=== PATIENT | male | born 1950 | race Asian ===

== ENCOUNTER 2018-11-13 22:57 | Emergency (ER) | payer OTHER ==
[~2018-11-13] VITALS: Ht 193 cm; Wt 72.1 kg
[2018-11-13 22:57] VITALS: BP 191/98; TEMP 97.5
[~2018-11-13 22:57] MED LIST: ACCU-CHEK; ACCU-CHEK ACTIVE STR VI; ALUMSUS6 PO; AMANTADINE100 M1 PO; AMANTADINE100 MG PO; AMLO2.5T PO; ATIVAN2 MG PO; BENADRYL 50M50 MG/ML IM; BENZTROPINE0.5 MG PO; BISAC-EVAC10 MG RE; BISACODYL5 M1 PO; BUSP15TAB2 PO; BUSPIRONE10 MG PO; CARV25TA PO; DECUBI-VITE PO; DEPAKENE250 MG/5 M PO; DIPH12.553 PO; DIPH50IN IM; DIVALPROEX250 MG PO; DIVALPROEX500 MG PO; DOCU100C10 PO; FLEET ENEMA RE; GLUCERN1 PO; GLUCOSE40 % PO; GLUMETZA500 MG PO; HALO50IN4 IM; HALO5INJ3 IM; HALO5TAB10 PO; INSU100P SC; INSUINJ20 SC; KAOPECTATE262 MG/15 PO; LEVEMIR SC; LEXAPRO10 MG PO; LEXAPRO20 MG PO; LISI20TA11 PO; LISINOP/HCTZ1 TA2 PO; LORA1TAB17 PO; LORA2INJ21 IM; LORA2INJ21 INJ; MAGN400T4 PO; MAGNSUS68 PO; MEDR10TA4 PO; METF100038 PO; METF500T PO; MICROZIDE12.5 MG PO; OXCARBAZEPIN300 MG PO; PERPHENAZINE4 MG PO; PIOG30TA PO; POTA20TA4 PO; PROMETHAZINE25 M1 IM; PROPRANOLOL10 MG PO; QUETIAPINE50 MG PO; RISP1TAB PO; RISP2TAB2 PO; RISP50IN IM; SANTYL250 MG/GM TOP; SEROQUEL100 MG PO; SEROQUEL300 MG PO; THERA-M PO; TRADJENTA5 M1 PO; TRAZODONE300 MG PO; TRIPLE ANTIBIOTIC; TYLENOL325 MG PO; VALPROIC ACID10 ML PO; VIT D2 PO; ZIPR20CA PO; ZIPR20IN IM; [UNRECOGNIZED DRUG - CODE] IV; [UNRECOGNIZED DRUG - OTHER] PO
[2018-11-13 23:34] LABS: PLATELET COUNT 246 K/uL (142-355)
[2018-11-13 23:42] LABS: POTASSIUM 3.3 mmol/L (3.6-5.2)
[2018-11-14] MEDS ORDERED: PROMETHAZINE25 MG/M2 IM (02:06)
[2018-11-14] MEDS ORDERED: SM TUSSIN DM PO (02:07)
[2018-11-14] MEDS ORDERED: O2 NAS (02:09)
== END 2018-11-14 00:05 | disposition other institution (70) ==
LOC: ED 22:57
PROVIDERS: Internal Medicine
DX: F20.89 Other schizophrenia (principal); R00.0 Tachycardia, unspecified; Z04.6 Encounter for general psychiatric examination, requested by authority
CPT/HCPCS: 80053; 85027; 93005; 99285

== ENCOUNTER 2019-01-15 18:25 | Emergency (ER) | payer OTHER ==
[~2019-01-15] VITALS: Ht 162.6 cm; Wt 73.0 kg
[2019-01-15 18:25] VITALS: BP 157/84; TEMP 97.7
[~2019-01-15 18:25] MED LIST changes: +CLON0.1T16 PO; +FLUP10TA3 PO; +O2 NAS; +PROMETHAZINE25 MG/M2 IM; +SM TUSSIN DM PO
[2019-01-16] MEDS ORDERED: OLAN2.5T2 PO (00:58)
[2019-01-16] MEDS ORDERED: FSBS (00:59)
[2019-01-16] MEDS ORDERED: DULCOLAX10 MG RE (01:06)
[2019-01-16] MEDS ORDERED: DULCOLAX5 MG PO (01:07)
[2019-01-16] MEDS ORDERED: TUSSIN DM PO (01:09)
[2019-01-16] MEDS ORDERED: GLUCOSE40 % PO (01:12)
[2019-01-16] MEDS ORDERED: HYDROCHLOROT12.5 M1 PO (01:15)
[2019-01-16] MEDS ORDERED: AMLO2.5T PO (01:15)
[2019-01-16] MEDS ORDERED: MAGN400T4 PO (01:16)
[2019-01-16] MEDS ORDERED: OXCARBAZEPIN300 MG PO (01:17)
[2019-01-16] MEDS ORDERED: PROPRANOLOL10 MG PO (01:18)
[2019-01-16] MEDS ORDERED: RISP2TAB2 PO (01:19)
[2019-01-16] MEDS ORDERED: OXCARBAZEPIN600 MG PO (01:19)
[2019-01-16] MEDS ORDERED: RISPERDAL3 MG PO (01:20)
== END 2019-01-15 18:50 | disposition other institution (70) ==
LOC: ED 18:25
DX: F03.91 Unspecified dementia, unspecified severity, with behavioral disturbance (principal); Z04.6 Encounter for general psychiatric examination, requested by authority
CPT/HCPCS: 99285